=== PATIENT | male | born 1945 | race Hispanic/Latino ===

== ENCOUNTER 2022-05-06 16:08 | Emergency (ER) | payer MEDICARE ==
[~2022-05-06] VITALS: Ht 172.7 cm; Wt 72.6 kg
[2022-05-06] MEDS ORDERED: CLONIDINE HCL 0.1 MG TABLET PO ONE ×2 (17:00→17:30)
[2022-05-06 17:21] VITALS: BP 177/68
== END 2022-05-06 18:05 | disposition home or self-care (01) ==
LOC: EDH 16:08
DX: C44.319 Basal cell carcinoma of skin of other parts of face (principal); R03.0 Elevated blood-pressure reading, without diagnosis of hypertension